=== PATIENT | male | born 1960 | race Caucasian/White ===

== ENCOUNTER 2017-12-08 18:11 | Emergency (ER) | payer OTHER ==
[2017-12-08] MEDS: IBUPROFEN 800 MG TAB PO (20:27)
[2017-12-08] MEDS: HYDROCODONE/APAP (5/325) TAB PO (20:28)
== END 2017-12-08 23:27 | disposition home or self-care (01) ==
LOC: FTE 18:11
DX: M25.561 Pain in right knee (principal)
CPT/HCPCS: 73562; 99283-25